=== PATIENT | male | born 1980 | race Caucasian/White ===

== ENCOUNTER 2023-06-07 19:56 | Emergency (ER) | payer BC, OTHER ==
[~2023-06-07] VITALS: Ht 185 cm; Wt 113.0 kg
--- NOTE | 2023-06-07 20:34 | ED Chest Pain ---
General Stated Complaint: LEFT SIDE RIB PAIN Source: patient Exam Limitations: no limitations History of Present Illness Date Seen by Provider: Jun 07, 2023 Time Seen by Provider: 20:22 Initial Comments Patient is a 43-year-old male with a negative past medical history who presents to the emergency room with a chief complaint of left lower rib pain, radiating into his back off and on all weekend but most recently within the last hour. He states he had an episode of coughing up blood just prior to arrival, he said 2 or 3 "globs". He states it was kind of brownish-red. He has had some chills today. Generally not feeling well over the weekend. Poor appetite a little nausea. He does not have any history of hemoptysis in the past. He used to be a cigarette smoker, does use marijuana last use 2 or 3 days ago. He has recently quit vaping. Last time he saw Was 3 or 4 years ago for a "back issue". He denies abdominal pain, urinary issues, diarrhea, black or bloody stools. He has never had any surgeries. No family history of first-degree relatives with coronary artery disease. States at its worst the pain was a "8". He does describe it as "sharp" but right now it is mild and "dull". Timing/Duration: 1-2 days Severity/Quality: sharp Location: other (Left lower chest) Radiation: back Activities at Onset: none Prior CP/Workup: no prior chest pain, no prior cardiac workup Modifying Factors: improves with other (Ibuprofen today but did not alleviate his symptoms) ASA po POWDER NIPPER: No NTG SL POWDER NIPPER: No Associated Symptoms: back pain, fever/chills, nausea/vomiting, shortness of breath Allergies and Home Medications Allergies Coded Allergies: No Known Drug Allergies (Unverified , 06/07/23) Patient Home Medication List Home Medication List Reviewed: Yes Albuterol Sulfate (Ventolin Hfa) 90 Mcg Hfa.aer.ad, 2 PUFF INH Q6H PRN for shortness of breath Prescribed by: PERLITA PEDRO on 06/07/232138 Azithromycin (Azithromycin) 250 Mg Tablet, 250 MG PO DAILY Prescribed by: PERLITA PEDRO on 06/07/232138 Cefdinir (Cefdinir) 300 Mg Capsule, 300 MG PO BID Prescribed by: PERLITA PEDRO on 06/07/232138 Review of Systems Review of Systems Constitutional: chills EENTM: No Symptoms Reported Respiratory: Shortness of Air Cardiovascular: Chest Pain Gastrointestinal: Nausea, Poor Appetite Genitourinary: No Symptoms Reported Musculoskeletal: other (Left lower ribs and back) Skin: no symptoms reported Psychiatric/Neurological: No Symptoms Reported All Other Systems Reviewed Negative Unless Noted: Yes Physical Exam Vital Signs Vital Signs - First Documented 06/07/23 20:30 Temp 37.0 Pulse 86 Resp 18 B/P (MAP) 173/77 (109) Pulse Ox 96 O2 Delivery Room Air Capillary Refill : Height, Weight, BMI Height: '" Weight: lbs. oz. kg; BMI Method: General Appearance: No Apparent Distress, WD/WN HEENT: PERRL/EOMI Neck: Normal Inspection Respiratory: Lungs Clear, Normal Breath Sounds, No Accessory Muscle Use, No Respiratory Distress, Other (Left lower ribs tender to palpation, no chest wall crepitance) Cardiovascular: Regular Rate, Rhythm, Normal Peripheral Pulses Gastrointestinal: Non Tender, Soft Extremity: Normal Capillary Refill, Normal Inspection, Normal Range of Motion, No Pedal Edema Neurologic/Psychiatric: Alert, Oriented x3, No Motor/Sensory Deficits, Normal Mood/Affect Skin: Normal Color, Warm/Dry Progress/Results/Core Measures Results/Orders Lab Results Laboratory Tests Test 06/07/23 20:30 Range/Units White Blood Count 16.0 H 4.3-11.0 10^3/uL Red Blood Count 5.66 H 4.30-5.52 10^6/uL Hemoglobin 16.6 13.3-17.7 g/dL Hematocrit 48 40-54 % Mean Corpuscular Volume 85 80-99 fL Mean Corpuscular Hemoglobin 29 25-34 pg Mean Corpuscular Hemoglobin Concent 34 32-36 g/dL Red Cell Distribution Width 13.2 10.0-14.5 % Platelet Count 233 130-400 10^3/uL Mean Platelet Volume 9.7 9.0-12.2 fL Immature Granulocyte % (Auto) 0 % Neutrophils (%) (Auto) 70 42-75 % Lymphocytes (%) (Auto) 20 12-44 % Monocytes (%) (Auto) 7 0-12 % Eosinophils (%) (Auto) 2 0-10 % Basophils (%) (Auto) 0 0-10 % Neutrophils # (Auto) 11.3 H 1.8-7.8 10^3/uL Lymphocytes # (Auto) 3.2 1.0-4.0 10^3/uL Monocytes # (Auto) 1.1 H 0.0-1.0 10^3/uL Eosinophils # (Auto) 0.2 0.0-0.3 10^3/uL Basophils # (Auto) 0.1 0.0-0.1 10^3/uL Immature Granulocyte # (Auto) 0.1 0.0-0.1 10^3/uL Neutrophils % (Manual) 72 % Lymphocytes % (Manual) 15 % Monocytes % (Manual) 7 % Eosinophils % (Manual) 3 % Band Neutrophils 3 % Clumped Platelets NO PLT CLUMPS NOTED Percent Immature Platelet Fraction 1.2 0.0-7.6 % Prothrombin Time 14.2 12.2-14.7 SEC INR Comment 1.1 0.8-1.4 Activated Partial Thromboplast Time 20 L 24-35 SEC Sodium Level 137 135-145 MMOL/L Potassium Level 3.7 3.6-5.0 MMOL/L Chloride Level 101 98-107 MMOL/L Carbon Dioxide Level 22 21-32 MMOL/L Anion Gap 14 5-14 MMOL/L Blood Urea Nitrogen 17 7-18 MG/DL Creatinine 1.15 0.60-1.30 MG/DL Estimat Glomerular Filtration Rate 80 BUN/Creatinine Ratio 15 Glucose Level 134 H 70-105 MG/DL Calcium Level 10.3 H 8.5-10.1 MG/DL Corrected Calcium 10.0 8.5-10.1 MG/DL Magnesium Level 2.0 1.6-2.4 MG/DL Total Bilirubin 0.9 0.1-1.0 MG/DL Aspartate Amino Transf (AST/SGOT) 43 H 5-34 U/L Alanine Aminotransferase (ALT/SGPT) 69 H 0-55 U/L Alkaline Phosphatase 97 40-136 U/L Troponin I < 0.028 <0.028 NG/ML Total Protein 8.1 6.4-8.2 GM/DL Albumin 4.4 3.2-4.5 GM/DL My Orders Orders - PERLITA PEDRO MD Cbc With Automated Diff (06/07/23 20:22) Magnesium (06/07/23 20:22) Chest 1 View, Ap/Pa Only (06/07/23 20:22) Ekg Tracing (06/07/23 20:22) Comprehensive Metabolic Panel (06/07/23 20:22) Protime With Inr (06/07/23 20:22) Partial Thromboplastin Time (06/07/23 20:22) O2 (06/07/23 20:22) Monitor-Rhythm Ecg Trace Only (06/07/23 20:22) Ed Iv/Invasive Line Start (06/07/23 20:22) Troponin I Trudy (06/07/23 20:22) Manual Differential (06/07/23 20:30) Ceftriaxone Iv/Im (Rocephin Iv/Im) (06/07/23 21:45) Azithromycin Tablet (Zithromax Tablet) (06/07/23 21:45) Medications Given in ED Current Medications Medications Dose Ordered Sig/Silvia Route Start Time Stop Time Status Last Admin Dose Admin Azithromycin 500 mg ONCE ONCE PO 06/07/23 21:45 06/07/23 21:46 DC 06/07/23 21:57 500 MG Ceftriaxone Sodium 1000 mg/ Sodium Chloride 50 ml @ 100 mls/hr ONCE ONCE IV 06/07/23 21:45 06/07/23 22:14 DC 06/07/23 21:58 100 MLS/HR Vital Signs/I&O 06/07/23 06/07/23 20:30 22:19 Temp 37.0 Pulse 86 98 Resp 18 20 B/P (MAP) 173/77 (109) 142/88 Pulse Ox 96 92 O2 Delivery Room Air Room Air Progress Progress Note : Time: 21:39 Progress Note Seen and evaluated by me. Evaluation today includes physical exam, "chest pain protocol" to include EKG, single view chest x-ray, CBC, Chem-12, coag profile. Pertinent physical exam findings well-developed well-nourished 43-year-old male in no acute distress with stable vital signs. He is afebrile. No rales want rhonchi or wheezes noted on physical exam. No chest wall tenderness. The patient is afebrile. Abdominal exam is benign. No lower extremity edema, calf tenderness or swelling. Differential diagnosis based on history and physical exam, NSTEMI, pneumonia, pleurisy. Reviewed and interpreted by me. His CBC shows a leukocytosis of 16,000 without left shift. Chem-12 remarkable for slightly increased glucose at 134 as well as mildly increased AST T and ALT at 43 and 69. His PTT is 20 otherwise coag profile unremarkable. EKG, normal sinus rhythm without ectopy or ST segment change. Chest x-ray is read by the radiologist shows a left lower lobe infiltrate. Patient is treated in the emergency department with a gram of Rocephin and a 500 mg azithromycin tablet. I discussed with him the need for continued smoking cessationdiscontinuance of marijuana and vaping. A prescription is provided for cefdinir and azithromycin as well as an albuterol inhaler. I discussed with the patient return precautions and he verbalized understanding of the plan of care. He has no clinical or objective findings to warrant inpatient admission at this time. All questions were sought and answered. Patient is stable for discharge. No concerning findings for cardiac pathology at this time. Initial ECG Impression Date: Jun 07, 2023 Initial ECG Impression Time: 20:27 Initial ECG Rate: 82 Initial ECG Rhythm: Normal Sinus Initial ECG Intervals: Normal Initial ECG Impression: Nonspecific Changes (Nonspecific ST-T wave changes in leads II, 3, aVF as well as leads V5 and V6) Diagnostic Imaging Diagonstic Imaging: Xray Plain Films/CT/US/NM/MRI: chest Comments [facility], [place] NAME: KIT GRAHAM [facility] REC#: [id number] PT STATUS: REG ER : 1980 PHYSICIAN: PERLITA PEDRO MD ADMIT DATE: 06/07/23/ER Draft Date of Exam:06/07/23 CHEST 1 VIEW, AP/PA ONLY INDICATION: Left-sided chest pain with pain for one week, hemoptysis. COMPARISONS: None FINDINGS: Single chest shows the cardiac contour to be within normal limits. There is a left lower lobe consolidation with a left effusion of a moderate size. Some perihilar infiltrates are seen. Some background chronic parenchymal changes are present. Film is underpenetrated. IMPRESSION: 1. Left lower lobe consolidation with underlying moderate left effusion. 2. Some perihilar infiltrates are seen. Additional nonemergent findings as described above. Dictated on workstation # [id number] Dict: 06/07/232100 Trans: 06/07/232111 [facility] [id number] Interpreted by: MISSY JACKSON MD Electronically signed by: Departure Impression Primary Impression: Pneumonia Qualified Codes: J18.9 - Pneumonia, unspecified organism Disposition: 01 HOME, SELF-CARE Condition: Stable Departure-Patient Inst. Decision time for Depature: 21:36 Referrals: MARITZA CHRISTOPHER DO (PCP) Primary Care Physician Patient Instructions: Pneumonia, Adult (DC) Add. Discharge Instructions: Avoid smoking/vaping over the next week to 10 days. Use the inhaler, albuterol 2 puffs every 4-6 hours as needed for shortness of breath. Take the antibiotics, azithromycin starting tomorrow 250 mg once daily for the next 4 days. Cefdinir antibiotic 300 mg twice daily starting tomorrow for 9 days. Take [id number] ibuprofen 3 tablets which is 600 mg every 6 hours with a little food as needed for pain. Try and take deep breaths to open up your lungs. If you develop a fever, worsening pain/shortness of breath or any other emergent, concerning symptoms please return to the emergency department for reevaluation. Scripts Cefdinir (Cefdinir) 300 Mg Capsule 300 MG PO BID for 9 Days, #18 CAP Prov: PERLITA PEDRO MD 06/07/23 Azithromycin (Azithromycin) 250 Mg Tablet 250 MG PO DAILY, #4 TAB 0 Refills Prov: PERLITA PEDRO MD 06/07/23 Albuterol Sulfate (Ventolin Hfa) 90 Mcg Hfa.aer.ad 2 PUFF INH Q6H PRN for shortness of breath, #1 UNIT 1 PUFF = 90 MCG Prov: PERLITA PEDRO MD 06/07/23 Copy Copies To 1: MARITZA CHRISTOPHER KATHRYN M MD Jun 07, 2023 20:34
[2023-06-07 20:37] LABS: MEAN CORPUSCULAR VOLUME 85 fL (80-99)
[2023-06-07 20:39] LABS: BASOPHILS # (AUTO) 0.1 10^3/uL (0.0-0.1); BASOPHILS % (AUTO) 0 % (0-10); EOSINOPHILS # (AUTO) 0.2 10^3/uL (0.0-0.3); EOSINOPHILS % (AUTO) 2 % (0-10); HEMATOCRIT 48 % (40-54); HEMOGLOBIN 16.6 g/dL (13.3-17.7); LYMPHOCYTES # (AUTO) 3.2 10^3/uL (1.0-4.0); LYMPHOCYTES % (AUTO) 20 % (12-44); MEAN CORPUSCULAR HEMOGLOBIN 29 pg (25-34); MEAN CORPUSCULAR HGB CONC 34 g/dL (32-36); MEAN PLATELET VOLUME 9.7 fL (9.0-12.2); MONOCYTES # (AUTO) 1.1 10^3/uL (0.0-1.0); MONOCYTES % (AUTO) 7 % (0-12); NEUTROPHILS # (AUTO) 11.3 10^3/uL (1.8-7.8); NEUTROPHILS % (AUTO) 70 % (42-75); PLATELET COUNT 233 10^3/uL (130-400)
[2023-06-07 20:47] LABS: INR 1.1 (0.8-1.4); PROTHROMBIN TIME PATIENT 14.2 SEC (12.2-14.7)
[2023-06-07 20:52] LABS: BAND NEUTROPHILS 3 %; EOSINOPHILS % (MANUAL) 3 %; LYMPHOCYTES % (MANUAL) 15 %; MONOCYTES % (MANUAL) 7 %; NEUTROPHILS % (MANUAL) 72 %
[2023-06-07 20:53] LABS: PLATELET CLUMPS NO PLT CLUMPS NOTED
[2023-06-07 21:08] LABS: ALANINE AMINOTRANSFERASE 69 U/L (0-55); ALBUMIN 4.4 GM/DL (3.2-4.5); ALKALINE PHOSPHATASE 97 U/L (40-136); BILIRUBIN,TOTAL 0.9 MG/DL (0.1-1.0); BUN/CREATININE RATIO 15; CALCIUM 10.3 MG/DL (8.5-10.1); CARBON DIOXIDE 22 MMOL/L (21-32); CHLORIDE 101 MMOL/L (98-107); CREATININE SERUM 1.15 MG/DL (0.60-1.30); GFR ESTIMATED 80; GLUCOSE 134 MG/DL (70-105); POTASSIUM 3.7 MMOL/L (3.6-5.0); SODIUM 137 MMOL/L (135-145); TOTAL PROTEIN 8.1 GM/DL (6.4-8.2)
--- NOTE | 2023-06-07 21:13 | Diagnostic Imaging Report ---
INDICATION: Left-sided chest pain with pain for one week, hemoptysis. COMPARISONS: None FINDINGS: Single chest shows the cardiac contour to be within normal limits. There is a left lower lobe consolidation with a left effusion of a moderate size. Some perihilar infiltrates are seen. Some background chronic parenchymal changes are present. Film is underpenetrated. IMPRESSION: 1. Left lower lobe consolidation with underlying moderate left effusion. 2. Some perihilar infiltrates are seen. Additional nonemergent findings as described above. Dictated by: Dictated on workstation # [id number]
[2023-06-07] MEDS ORDERED: ALBU8.5H6 INH (21:39)
[2023-06-07] MEDS ORDERED: CEFD300C3 PO (21:39)
[2023-06-07] MEDS ORDERED: AZIT250T12 PO (21:39)
[2023-06-07] MEDS ORDERED: AZITHROMYCIN 250 MG TAB (ZITHROMAX) PO ONE (21:45)
[2023-06-07] MEDS ORDERED: cefTRIAXone IV/IM 1,000 MG in NS (IVPB) 50 ML IV ONE (21:45)
[2023-06-07 22:19] VITALS: BP 142/88
== END 2023-06-07 22:25 | disposition home or self-care (01) ==
LOC: EDUNIT# 19:56 → ER 19:59
DX: J18.9 Pneumonia, unspecified organism (principal); R74.01 Elevation of levels of liver transaminase levels; Z87.891 Personal history of nicotine dependence; Z28.310 Unvaccinated for COVID-19
CPT/HCPCS: 36415; 71045; 80053; 83735; 84484; 85007; 85027; 85610; 85730; 93005; 93041